=== PATIENT | male | born 1940 | race Hispanic/Latino ===

== ENCOUNTER 2021-06-29 09:18 | Inpatient (IN) | payer MEDICARE ==
[~2021-06-29] VITALS: Ht 177.8 cm; Wt 82.6 kg
[2021-06-29 10:39] LABS: APPEARANCE,URINE Cloudy (CLEAR); BILIRUBIN,URINE Negative (NEGATIVE); COLOR,URINE Yellow (YELLOW); GLUCOSE, URINE (UA) Negative (NEGATIVE); KETONES,URINE Negative (NEGATIVE); LEUKOCYTE ESTERASE ,URINE Negative (NEGATIVE); NITRATE,URINE Negative (NEGATIVE); OCCULT BLOOD,URINE Negative (NEGATIVE); PH,URINE 5.5 (5.0-8.0); PROTEIN,URINE Negative (NEGATIVE)
[2021-06-29 10:57] LABS: BACTERIA,URINE None Seen /HPF (None Seen); RBC,URINE 0-1 /HPF (0-1); SQUAMOUS EPITHELIAL CELL,UR 0-2 /HPF (0-2); WBC,URINE 0-1 /HPF (0-1)
[2021-06-29 11:19] LABS: BASOPHILS % (AUTO) 1.3 % (0.0-5.0); EOSINOPHILS % (AUTO) 3.2 % (0.0-8.0); HEMATOCRIT 38.3 % (42-54); LYMPHOCYTES % (AUTO) 22.5 % (21.0-51.0); MEAN CORPUSCULAR HEMOGLOBIN 27.4 pg (27.0-33.0); MEAN CORPUSCULAR HGB CONC 31.3 g/dL (32.0-36.0); MEAN CORPUSCULAR VOLUME 87.4 fL (79-99); MONOCYTES % (AUTO) 12.6 % (3.0-13.0); NEUTROPHILS % (AUTO) 60.1 % (40.0-77.0); PLATELET COUNT (AUTO) 167 K/uL (130-400); RED BLOOD CELL COUNT(AUTO) 4.38 MIL/uL (4.50-6.20); RED CELL DISTRIBUTION WIDTH 17.2 % (11.0-15.5); WHITE BLOOD COUNT (AUTO) 6.3 K/uL (4.8-10.8)
[2021-06-29 11:29] LABS: CREATININE 1.8 mg/dL (0.5-1.5); POTASSIUM 4.5 mmol/L (3.5-5.1)
[2021-06-29 11:45] LABS: INR 1.13 (0.85-1.15); PROTHROMBIN TIME 12.2 SEC (9.6-11.6)
[2021-06-29 13:58] VITALS: BP 121/77
[2021-06-29] MEDS ORDERED: PANT40TA54 PO (14:34)
[2021-06-29] MEDS ORDERED: APIX2.5T PO (14:34)
[2021-06-29] MEDS ORDERED: ATEN25TA PO (14:34)
[2021-06-29] MEDS ORDERED: ASCO500C18 PO (14:34)
[2021-06-29] MEDS ORDERED: MV-M1TAB20 PO (14:34)
[2021-06-29] MEDS ORDERED: AMLO2.5T4 PO (14:34)
[2021-06-29] MEDS ORDERED: FERR-82 PO (14:34)
[2021-06-29] MEDS ORDERED: ALLO300T2 PO (14:34)
[2021-06-29] MEDS ORDERED: AEC81 PO (14:34)
[2021-06-29] MEDS ORDERED: TAMS-1 PO (14:34)
[2021-07-02] VITALS (26 sets, daily range): BP systolic 119–156; BP diastolic 76–100
[2021-07-02] MEDS: CEFAZOLIN SODIUM 1 GM VIAL IVP SCH ×3 (07:22→17:50)
[2021-07-02] MEDS: LACTATED RINGERS 1000ML 1,000 ML IV ONE ×2 (07:23→07:24)
[2021-07-02] MEDS ORDERED: CEFAZOLIN SODIUM 1 GM VIAL ONE (07:26)
[2021-07-02] MEDS ORDERED: ACETAMINOPHEN 500 MG TABLET ONE (08:12)
[2021-07-02] MEDS ORDERED: CELECOXIB 200 MG CAP ONE (08:13)
[2021-07-02] MEDS ORDERED: LIDOCAINE PF 100MG/5ML (2%) SYRINGE 5ML ONE (08:26)
[2021-07-02] MEDS ORDERED: PROPOFOL 10 MG/ML 20ML VIAL IV ONE (08:26)
[2021-07-02] MEDS ORDERED: ROCURONIUM 10MG/1ML SYR 10 MG/ML ML ONE (08:27)
[2021-07-02] MEDS ORDERED: MIDAZOLAM HCL 1 MG/ML 2ML VIAL ONE (08:27)
[2021-07-02] MEDS ORDERED: FENTANYL CITRATE PF 50 MCG/1 ML 2ML VIAL ONE (08:29)
[2021-07-02] MEDS ORDERED: ROPIVACAINE 0.5% 5MG/ML 30ML IJ ONE (08:30)
[2021-07-02] MEDS ORDERED: DEXAMETHASONE SOD PHOSPHATE 10MG/ML 1ML VIAL ONE (09:09)
[2021-07-02] MEDS ORDERED: CEFAZOLIN SODIUM 1 GM VIAL IRRIG ONE (10:00)
[2021-07-02] MEDS ORDERED: TRANEXAMIC ACID 1000MG/10ML ONE (10:41)
[2021-07-02] MEDS ORDERED: EPHEDRINE SULFATE 50 MG/ML AMPULE ONE (11:15)
[2021-07-02] MEDS ORDERED: GLYCOPYRROLATE 1 MG/5 ML SYRINGE ONE (11:20)
[2021-07-02] MEDS ORDERED: NEOSTIGMINE 5MG/5ML SYR IV ONE (11:21)
[2021-07-02] MEDS ORDERED: CALCIUM CARB 500MG PO PRN (11:30)
[2021-07-02] MEDS: 0.9%NACL 1000ML 1,000 ML IV SCH (11:30)
[2021-07-02] MEDS ORDERED: TEMAZEPAM 15 MG CAPSULE PO PRN (11:30)
[2021-07-02] MEDS ORDERED: POTASSIUM CHLORIDE 10% ELIXIR 20 MEQ/15 ML UDCUP PO PRN (11:30)
[2021-07-02] MEDS ORDERED: POTASSIUM CHLORIDE 20MEQ/100ML 100 ML IV PRN (11:30)
[2021-07-02] MEDS: ACETAMINOPHEN 500 MG TABLET PO SCH ×2 (11:30→18:06)
[2021-07-02] MEDS ORDERED: KCL 20 MEQ ERTAB PO PRN (11:30)
[2021-07-02] MEDS ORDERED: FERROUS FUMARATE 324 MG TABLET PO PRN (11:30)
[2021-07-02] MEDS ORDERED: DiphenhydrAMINE HCL 50 MG/ML VIAL IVP PRN (11:30)
[2021-07-02] MEDS ORDERED: OXYCODONE HCL 5 MG TAB PO PRN (11:30)
[2021-07-02] MEDS ORDERED: LIDOCAINE HCL-MPF 1% 2ML VIAL IV PRN (11:30)
[2021-07-02] MEDS ORDERED: ONDANSETRON 4MG INJ IVP PRN (11:30)
[2021-07-02] MEDS ORDERED: MEPERIDINE-PF 25 MG/ML SYG ONE ×2 (11:47→11:59)
[2021-07-02] MEDS: PREGABALIN 25 MG CAP PO SCH (21:08)
[2021-07-02] MEDS: CELECOXIB 200 MG CAP PO SCH (21:09)
[2021-07-02] MEDS: FAMOTIDINE 20MG TAB PO SCH (21:09)
[2021-07-02] MEDS: ATENOLOL 25 MG TABLET PO SCH (21:09)
[2021-07-02] MEDS: APIXABAN 2.5 MG TABLET PO SCH (21:10)
[2021-07-03] VITALS (7 sets, daily range): BP systolic 118–136; BP diastolic 72–79
[2021-07-03] MEDS: CEFAZOLIN SODIUM 1 GM VIAL IVP SCH (00:46)
[2021-07-03] MEDS: 0.9%NACL 1000ML 1,000 ML IV SCH (03:06)
[2021-07-03] MEDS: ACETAMINOPHEN 500 MG TABLET PO SCH ×3 (03:08→22:12)
[2021-07-03 03:56] LABS: HEMATOCRIT 34.6 % (42-54); MEAN CORPUSCULAR HEMOGLOBIN 27.3 pg (27.0-33.0); MEAN CORPUSCULAR HGB CONC 30.3 g/dL (32.0-36.0); MEAN CORPUSCULAR VOLUME 89.9 fL (79-99); PLATELET COUNT (AUTO) 158 K/uL (130-400); RED BLOOD CELL COUNT(AUTO) 3.85 MIL/uL (4.50-6.20); RED CELL DISTRIBUTION WIDTH 17.2 % (11.0-15.5); WHITE BLOOD COUNT (AUTO) 9.1 K/uL (4.8-10.8)
[2021-07-03 04:07] LABS: CREATININE 1.7 mg/dL (0.5-1.5); POTASSIUM 5.1 mmol/L (3.5-5.1)
[2021-07-03] MEDS: OXYCODONE HCL 5 MG TAB PO PRN ×2 (07:51→22:10)
[2021-07-03] MEDS: TAMSULOSIN HCL 0.4 MG CAP.ER.24H PO SCH ×2 (09:00→09:58)
[2021-07-03] MEDS: PANTOPRAZOLE 40 MG TAB DR PO SCH (09:56)
[2021-07-03] MEDS: APIXABAN 2.5 MG TABLET PO SCH ×2 (09:56→22:13)
[2021-07-03] MEDS: PREGABALIN 25 MG CAP PO SCH ×2 (09:56→22:13)
[2021-07-03] MEDS: AMLODIPINE 2.5 MG TAB PO SCH (09:57)
[2021-07-03] MEDS: CELECOXIB 200 MG CAP PO SCH ×2 (09:57→22:13)
[2021-07-03] MEDS: FERROUS SULFATE 325 MG TABLET.DR PO SCH (09:57)
[2021-07-03] MEDS: ATENOLOL 25 MG TABLET PO SCH ×2 (09:57→21:00)
[2021-07-03] MEDS: MULTIVITAMINS/MINERALS/IRO TAB PO SCH (09:57)
[2021-07-03] MEDS: ASCORBIC ACID 500 MG TAB PO SCH (09:58)
[2021-07-03] MEDS: ALLOPURINOL 300 MG TABLET PO SCH (09:58)
[2021-07-03] MEDS: ASPIRIN 81 MG EC TAB PO SCH (09:58)
[2021-07-03] MEDS: POLYETHYLENE GLYCOL 3350 17 GM POWD.PACK PO SCH (10:05)
[2021-07-03] MEDS: TRAMADOL HCL 50 MG TABLET PO PRN (10:05)
[2021-07-03] MEDS: FAMOTIDINE 20MG TAB PO SCH ×2 (10:06→22:13)
[2021-07-03] MEDS ORDERED: MIRA50TA PO (10:08)
[2021-07-04] MEDS: ACETAMINOPHEN 500 MG TABLET PO SCH ×2 (03:30→11:30)
[2021-07-04 04:32] VITALS: BP 128/82
[2021-07-04 07:30] VITALS: BP 143/88
[2021-07-04] MEDS: FERROUS SULFATE 325 MG TABLET.DR PO SCH (08:37)
[2021-07-04] MEDS: TAMSULOSIN HCL 0.4 MG CAP.ER.24H PO SCH ×2 (08:37→08:47)
[2021-07-04] MEDS: POLYETHYLENE GLYCOL 3350 17 GM POWD.PACK PO SCH (08:37)
[2021-07-04] MEDS: AMLODIPINE 2.5 MG TAB PO SCH (08:37)
[2021-07-04] MEDS: APIXABAN 2.5 MG TABLET PO SCH (08:38)
[2021-07-04] MEDS: MULTIVITAMINS/MINERALS/IRO TAB PO SCH (08:38)
[2021-07-04] MEDS: ALLOPURINOL 300 MG TABLET PO SCH (08:40)
[2021-07-04] MEDS: ASPIRIN 81 MG EC TAB PO SCH (08:40)
[2021-07-04] MEDS: CELECOXIB 200 MG CAP PO SCH (08:40)
[2021-07-04] MEDS: PANTOPRAZOLE 40 MG TAB DR PO SCH (08:40)
[2021-07-04] MEDS: FAMOTIDINE 20MG TAB PO SCH (08:40)
[2021-07-04] MEDS: PREGABALIN 25 MG CAP PO SCH (08:41)
[2021-07-04] MEDS: ATENOLOL 25 MG TABLET PO SCH (08:42)
[2021-07-04] MEDS: ASCORBIC ACID 500 MG TAB PO SCH (08:43)
[2021-07-04] MEDS: OXYCODONE HCL 5 MG TAB PO PRN (08:45)
[2021-07-04 11:03] VITALS: BP 124/75
[2021-07-04] MEDS: TRAMADOL HCL 50 MG TABLET PO PRN (12:03)
[2021-07-04 15:51] VITALS: BP 119/80
[2021-07-04] MEDS ORDERED: HYDR-4060 PO (17:01)
[2021-07-05] MEDS ORDERED: BISACODYL 10 MG SUPP.RECT RC PRN (11:30)
== END 2021-07-04 18:40 | disposition home health service (06) | DRG 470 ==
LOC: OBSVTOIN 07-02 06:15 → DAHIP 07-02 06:15 → 4AH 07-02 12:45
PROVIDERS: ADMIT Orthopaedic Surgery; ATTEND Orthopaedic Surgery
PROC: 0SRC0J9 Replacement of Right Knee Joint with Synthetic Substitute, Cemented, Open Approach (ICD-10-PCS; principal; 2021-07-02 09:54)
DX: M17.11 Unilateral primary osteoarthritis, right knee (principal); I10 Essential (primary) hypertension; I48.91 Unspecified atrial fibrillation; D64.9 Anemia, unspecified; M24.561 Contracture, right knee; G89.29 Other chronic pain; I25.10 Atherosclerotic heart disease of native coronary artery without angina pectoris; Z20.822 Contact with and (suspected) exposure to COVID-19; M1A.9XX1 Chronic gout, unspecified, with tophus (tophi); Z95.0 Presence of cardiac pacemaker; Z95.5 Presence of coronary angioplasty implant and graft
CPT/HCPCS: 36415; 80048; 81001; 85025; 85027; 85610; 87088; 87635; 87641; 93005; 97039; G0378; J0690; J1100; J2001; J2175; J2250; J2704; J2710; J2795; J3010; J3490; J7030; J7120

== ENCOUNTER → 2022-02-26 | Outpatient (CLI) | payer MEDICARE ==
[~2022-02-26] MED LIST: AEC81 PO; ALLO300T2 PO; AMLO2.5T4 PO; ASCO500C18 PO; ATEN25TA PO; HYDR-4060 PO; MIRA50TA PO; MV-M1TAB20 PO; PANT40TA54 PO; TAMS-1 PO; XARELTO PO
== END | disposition home or self-care (01) ==
LOC: LAB 10:54
PROVIDERS: ATTEND Otolaryngology Plastic Surgery within the Head & Neck
DX: I88.9 Nonspecific lymphadenitis, unspecified (principal)
CPT/HCPCS: 36415; 82565; 84520

== ENCOUNTER → 2022-03-01 | Outpatient (CLI) | payer MEDICARE ==
[2022-02-26 12:08] LABS: CREATININE 1.8 mg/dL (0.5-1.5)
[~2022-03-01] MED LIST changes: +IOHEXOL 350 MG/ML 100ML INFUS..BTL IV ONE
== END | disposition home or self-care (01) ==
LOC: RAH 10:02
PROVIDERS: ATTEND Otolaryngology Plastic Surgery within the Head & Neck
DX: I88.9 Nonspecific lymphadenitis, unspecified (principal); E04.2 Nontoxic multinodular goiter
CPT/HCPCS: 70491; Q9967; 36415; 82565; 84520

== ENCOUNTER → 2022-03-22 | Outpatient (CLI) | payer MEDICARE ==
[~2022-03-22] MED LIST changes: -IOHEXOL 350 MG/ML 100ML INFUS..BTL IV ONE
[2022-03-22 10:02] LABS: INR 1.03 (0.85-1.15); PROTHROMBIN TIME 11.2 SEC (9.6-11.6)
[2022-03-22 10:03] LABS: PARTIAL THROMBOPLASTIN TIME 30.3 SEC (26.3-35.5)
== END | disposition home or self-care (01) ==
LOC: RAH 09:09
PROVIDERS: ATTEND Otolaryngology Plastic Surgery within the Head & Neck
DX: E04.1 Nontoxic single thyroid nodule (principal); Z79.01 Long term (current) use of anticoagulants
CPT/HCPCS: 10005; 36415; 76942; 85610; 85730